=== PATIENT | female | born 2000 | race Caucasian/White ===

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

== ENCOUNTER 2019-05-27 16:49 | Emergency (ER) | payer OTHER ==
[2019-05-27 17:20] VITALS: BP 141/90
[2019-05-27 18:07] LABS: BILIRUBIN,URINE NEGATIVE (NEGATIVE); GLUCOSE, URINE (UA) NEGATIVE (NEGATIVE); KETONES,URINE (UA) NEGATIVE (NEGATIVE); LEUKOCYTE ESTERASE, URINE NEGATIVE (NEGATIVE); NITRITE,URINE NEGATIVE (NEGATIVE); OCCULT BLOOD,URINE NEGATIVE (NEGATIVE); PROTEIN,URINE NEGATIVE (NEGATIVE); UROBILINOGEN,URINE 0.2 (NORMAL) E.U./dL (NORMAL)
[2019-05-27 18:08] LABS: CLARITY,URINE CLEAR (CLEAR); HCG UR QUAL NEGATIVE
[2019-05-27] MEDS ORDERED: KETOROLAC 60 MG/2 ML VIAL IM STA (19:13)
[2019-05-27] MEDS ORDERED: diazePAM 5 MG TABLET PO STA (19:13)
--- NOTE | 2019-05-27 19:27 | ED Physician Documentation ---
PD HPI BACK PAIN - Stated complaint Stated Complaint: BACK PX - Chief complaint Chief Complaint: Back Pain - History obtained from History obtained from: Patient, Family - History of Present Illness Timing - onset: How many days ago (several days) Timing - duration: Days Timing - details: Gradual onset Pain level max: 8 Pain level now: 8 Location: Mid, Lower, Right, Left Quality: Pain, Spasm, Similar to prior episodes Associated symptoms: No: Fever, Weakness, Numbness, Incontinent of urine, Unable to urinate, Hematuria, Incontinent of stool Improves with: Rest Worsened by: Movement, Lifting Recently seen: Not recently seen Review of Systems Constitutional: denies: Fever, Chills Cardiac: denies: Chest pain / pressure Respiratory: denies: Cough GI: denies: Nausea, Vomiting Skin: denies: Rash Musculoskeletal: denies: Neck pain, Back pain Neurologic: denies: Headache PD PAST MEDICAL HISTORY - Past Medical History Past Medical History: Yes Psych: Depression Musculoskeletal: Chronic back pain - Past Surgical History Past Surgical History: No - Present Medications Home Medications: Ambulatory Orders Medication Instructions Recorded Confirmed Cetirizine [ZyrTEC] 07/23/17 Lidocaine [Aspercreme] 1 each TP 05/27/19 Meloxicam [Mobic] 15 mg PO DAILY PRN #20 tablet 05/27/19 Methyl Salicylate/Menth/Camph 1 each TP 05/27/19 [Salonpas 3.1%-6.0%-10.0% Patch] Salicylate 1 tab ORAL DAILY 05/27/19 Venlafaxine HCl [Effexor Xr] 150 mg PO 05/27/19 busPIRone [Buspar] 30 mg PO BID 05/27/19 05/27/19 diazePAM [Valium] 5 - 10 mg PO TID PRN #15 tablet 05/27/19 lamoTRIgine [LaMICtal] 100 mg PO 05/27/19 - Allergies Allergies/Adverse Reactions: Allergies Allergy/AdvReac Type Severity Reaction Status Date / Time bupropion [From Wellbutrin] Allergy Hallucinati Verified 05/27/19 17:08 ons sertraline [From Zoloft] Allergy Unknown Verified 05/27/19 17:08 - Social History Does the pt smoke?: No Smoking Status: Never smoker Does the pt drink ETOH?: No Does the pt have substance abuse?: No - Immunizations Immunizations are current?: Yes - POLST Patient has POLST: No PD ED PE NORMAL - Vitals Vital signs reviewed: Yes - General General: Alert and oriented X 3, No acute distress, Well developed/nourished - HEENT HEENT: Moist mucous membranes - Neck Neck: Supple, no meningeal sign - Cardiac Cardiac: RRR, Strong equal pulses - Respiratory Respiratory: No respiratory distress, Clear bilaterally - Abdomen Abdomen: Soft, Non tender, Non distended - Back Back: Other (No midline tenderness palpation. No step-off or deformity. Paraspinal spasm low lumbar bilaterally.) - Derm Derm: Warm and dry - Extremities Extremities: Other (Normal bilateral lower extremity patellar and ankle jerk reflexes. Normal great toe extension bilaterally. no saddle anesthesia) - Neuro Neuro: Alert and oriented X 3, No motor deficit, No sensory deficit - Psych Psych: Normal mood, Normal affect Results - Vitals Vitals: Vital Signs - 24 hr 05/27/19 17:05 Temperature 36.8 C Heart Rate 105 H Respiratory 16 Rate Blood Pressure 141/90 H O2 Saturation 100 Oxygen O2 Source Room air - Labs Labs: Laboratory Tests 05/27/19 18:03 Urine Color LT. YELLOW Urine Clarity CLEAR Urine pH 6.0 Ur Specific [place] 1.010 Urine Protein NEGATIVE Urine Glucose (UA) NEGATIVE Urine Ketones NEGATIVE Urine Occult Blood NEGATIVE Urine Nitrite NEGATIVE Urine Bilirubin NEGATIVE Urine Urobilinogen 0.2 (NORMAL) Ur Leukocyte Esterase NEGATIVE Ur Microscopic Review NOT INDICATED Urine Culture Comments NOT INDICATED Urine HCG, Qual NEGATIVE PD MEDICAL DECISION MAKING - ED course Complexity details: considered differential (No cauda equina, no spinal epidural abscess, no fracture, no aortic dissection or evidence of aneursym rupture), d/w patient ED course: 18-year-old female with back pain. Appears to be spasm. Will trial on pain medication muscle relaxants for home. No evidence of cauda equina, epidural abscess or fracture. Pain improved in the emergency department. Patient counseled regarding signs and symptoms for which I believe and urgent re- evaluation would be necessary. Patient with good understanding of and agreement to plan and is comfortable going home at this time This document was made in part using voice recognition software. While efforts are made to proofread this document, sound alike and grammatical errors may occur. Departure - Departure Disposition: Home, Self Care Clinical Impression: Back muscle spasm Condition: Good Instructions: ED Spasm Back No Trauma Follow-Up: TOYA MORALES [Primary Care Provider] - Within 1 week Prescriptions: diazePAM [Valium] 5 - 10 mg PO TID PRN #15 tablet PRN Reason: Spasms Meloxicam [Mobic] 15 mg PO DAILY PRN #20 tablet PRN Reason: pain Comments: Follow-up with your doctor for further care. Return if you worsen. This should improve over the next few days. Continue gentle stretching at home. Do not drive or operate heavy machinery while taking the Valium. Discharge Date/Time: 05/27/19 19:59
== END 2019-05-27 19:59 | disposition home or self-care (01) ==
LOC: ED 16:49
DX: M62.830 Muscle spasm of back (principal); M54.5 Low back pain
CPT/HCPCS: 81003; 81025; 96372; 99283; 99284; A9270; 81001; 87086